=== PATIENT | female | born 1985 | race African-American/Black ===

== ENCOUNTER 2016-07-12 11:30 | Emergency (ER) | payer MEDICAID ==
[~2016-07-12] VITALS: Ht 157.5 cm; Wt 63.5 kg
[2016-07-12 11:40] VITALS: BP 111/76; PULSE 94; RESP 19; TEMP 97.8; O2SAT 100
[2016-07-12] MEDS ORDERED: NACL 0.9% 1,000 ML IV ONE (11:49)
[2016-07-12 11:56] LABS: BILIRUBIN,URINE NEGATIVE (NEGATIVE); CLARITY/URINE SL HAZY (CLEAR); COLOR,URINE YELLOW (YELLOW); GLUCOSE,URINE NEGATIVE (NEGATIVE); KETONES,URINE NEGATIVE (NEGATIVE); LEUKOCYTE ESTERASE ,URINE TRACE (NEGATIVE); NITRITE, URINE NEGATIVE (NEGATIVE); PROTEIN URINE NEGATIVE (NEGATIVE)
[2016-07-12 11:58] LABS: BLOOD, URINE TRACE (NEGATIVE)
[2016-07-12 12:03] LABS: BACTERIA,URINE MODERATE /HPF (None Seen); MUCUS,URINE 1+ /LPF (None Seen)
[2016-07-12 12:41] LABS: BASOPHILS # (AUTO) 0.2 K/uL (0.0-0.2); BASOPHILS % (AUTO) 3.4 % (0.0-2.0); EOSINOPHILS # (AUTO) 0.2 K/uL (0.0-0.4); EOSINOPHILS % (AUTO) 2.9 % (0.0-4.0); HEMATOCRIT 37.3 % (36-48); LYMPHOCYTES # (AUTO) 1.3 K/uL (1.0-5.5); LYMPHOCYTES % (AUTO) 23.2 % (20.5-51.5); MEAN CORPUSCULAR HEMOGLOBIN 31 pg (27-31); MEAN CORPUSCULAR HGB CONC 35 % (32-36); MEAN CORPUSCULAR VOLUME 90 fL (79.0-98.0); MONOCYTES % (AUTO) 17.6 % (1.7-9.3); NEUTROPHILS # (AUTO) 3.1 K/uL (1.8-7.7); NEUTROPHILS % (AUTO) 52.9 % (40.0-70.0); PLATELET COUNT (AUTO) 221 K/uL (130-430); RED BLOOD CELL COUNT(AUTO) 4.16 MIL/uL (4.2-6.2); RED CELL DISTRIBUTION WIDTH 12.2 % (9.0-15.0); WHITE BLOOD COUNT (AUTO) 5.8 K/uL (4.8-10.8)
[2016-07-12 12:47] LABS: CALCIUM 8.4 mg/dL (8.4-11.0); CREATININE 0.67 mg/dL (0.55-1.30); POTASSIUM 3.6 mmol/L (3.5-5.1)
[2016-07-12 12:53] LABS: ALBUMIN 3.3 g/dL (3.4-4.8); TOTAL BILIRUBIN 0.2 mg/dL (0.0-1.0); TOTAL PROTEIN, SERUM 7.5 g/dL (6.4-8.3)
[2016-07-12 13:48] VITALS: BP 108/76; PULSE 94; RESP 19; TEMP 97.8; O2SAT 100
== END 2016-07-12 13:48 | disposition home or self-care (01) ==
LOC: SED 11:30
DX: O23.41 Unspecified infection of urinary tract in pregnancy, first trimester (principal); J45.909 Unspecified asthma, uncomplicated; Z3A.13 13 weeks gestation of pregnancy
CPT/HCPCS: 36415; 76700; 80053; 81000; 81025; 83690; 85025; 85610; 85730; 87086; 96360; 96361; 99285; J7030

== ENCOUNTER 2016-07-13 08:45 | Emergency (ER) | payer MEDICAID ==
[~2016-07-13] VITALS: Ht 152.4 cm; Wt 61.7 kg
[2016-07-13 08:53] VITALS: BP 126/58; PULSE 80; RESP 16; TEMP 97.3; O2SAT 100
[2016-07-13 09:20] VITALS: BP 126/58; PULSE 80; RESP 16; TEMP 97.3; O2SAT 100
== END 2016-07-13 09:20 | disposition home or self-care (01) ==
LOC: SED 08:45
DX: O23.41 Unspecified infection of urinary tract in pregnancy, first trimester (principal); J45.909 Unspecified asthma, uncomplicated; Z3A.13 13 weeks gestation of pregnancy
CPT/HCPCS: 99281

== ENCOUNTER 2016-10-06 09:52 | Emergency (ER) | payer MEDICAID ==
[~2016-10-06] VITALS: Ht 152.4 cm; Wt 70.3 kg
[2016-10-06 11:05] VITALS: BP_SYST 136
[2016-10-06 11:19] VITALS: BP_SYST 120
[2016-10-06 11:24] LABS: BILIRUBIN,URINE NEGATIVE (NEGATIVE); BLOOD, URINE NEGATIVE (NEGATIVE); CLARITY/URINE SL CLOUDY (CLEAR); COLOR,URINE YELLOW (YELLOW); GLUCOSE,URINE NEGATIVE (NEGATIVE); KETONES,URINE NEGATIVE (NEGATIVE); LEUKOCYTE ESTERASE ,URINE 3+ (NEGATIVE); NITRITE, URINE NEGATIVE (NEGATIVE); PROTEIN URINE NEGATIVE (NEGATIVE); UROBILINOGEN,URINE 0.2 (0.2-1.0)
[2016-10-06 11:37] LABS: HEMATOCRIT 38.3 % (36-48); HEMOGLOBIN 12.7 g/dL (12.0-16.0); MEAN CORPUSCULAR HEMOGLOBIN 30 pg (27-31); MEAN CORPUSCULAR HGB CONC 33 % (32-36); MEAN CORPUSCULAR VOLUME 92 fL (79.0-98.0); PLATELET COUNT (AUTO) 259 K/uL (130-430); RED BLOOD CELL COUNT(AUTO) 4.17 MIL/uL (4.2-6.2); RED CELL DISTRIBUTION WIDTH 11.9 % (9.0-15.0); WHITE BLOOD COUNT (AUTO) 8.9 K/uL (4.8-10.8)
[2016-10-06 11:37] LABS: BARBITURATE, URINE NEGATIVE (NEG <=200); BENZODIAZEPINE, URINE NEGATIVE (NEG <=150); CANNABINOID, URINE NEGATIVE (NEG <=50); COCAINE, URINE NEGATIVE (NEG <=150); METHAMPHETAMINES SCREEN,URINE NEGATIVE (NEG <=500); OPIATE, URINE NEGATIVE (NEG <=100); PHENCYCLIDINE SCREEN,URINE NEGATIVE (NEG <=25); UR TRICYCLIC ANTIDEPRESSANTS NEGATIVE (NEG <=300); URINE AMPHETAMINE NEGATIVE (NEG <=500); URINE METHADONE NEGATIVE (NEG <=200); URINE OXYCODONE SCREEN NEGATIVE (NEG <=100); URINE PROPOXYPHENE SCREEN NEGATIVE (NEG <=300)
[2016-10-06 11:43] LABS: BACTERIA,URINE MODERATE /HPF (None Seen); MUCUS,URINE 1+ /LPF (None Seen); WBC,URINE 20-50 /HPF (0-3)
[2016-10-06 11:49] LABS: ALBUMIN 2.9 g/dL (3.4-4.8); CALCIUM 8.7 mg/dL (8.4-11.0); CREATININE 0.61 mg/dL (0.55-1.30); TOTAL BILIRUBIN 0.2 mg/dL (0.0-1.0)
[2016-10-06 11:53] LABS: POTASSIUM 3.9 mmol/L (3.5-5.1)
[2016-10-06 12:10] LABS: BASOPHILS % (MANUAL) 0 % (0-2); EOSINOPHILS % (MANUAL) 1 % (0-7); LYMPHOCYTES % (MANUAL) 32 % (20-46); MONOCYTES % (MANUAL) 3 % (0-11)
[2016-10-06 12:45] VITALS: BP_SYST 121
== END 2016-10-06 12:45 | disposition home or self-care (01) ==
LOC: SED 09:52 → SPU 10:06 → UNDOADMOB 10:59 → SED 11:16 → UNDODISOB 11:55 → SPU 12:45
DX: O23.42 Unspecified infection of urinary tract in pregnancy, second trimester (principal); R03.0 Elevated blood-pressure reading, without diagnosis of hypertension; J45.909 Unspecified asthma, uncomplicated; H91.90 Unspecified hearing loss, unspecified ear; Z3A.26 26 weeks gestation of pregnancy
CPT/HCPCS: 36415; 76700-TC; 80053; 80307; 81000-TC; 81002-TC; 83690-TC; 85007; 85027; 87086; 99285; G0378